=== PATIENT | male | born 1995 | race African-American/Black ===

== ENCOUNTER 2022-09-11 04:21 | Emergency (ER) | payer MEDICAID ==
[~2022-09-11] VITALS: Ht 177.8 cm; Wt 86.0 kg
[2022-09-11 04:30] VITALS: BP 130/86
== END 2022-09-11 05:31 | disposition home or self-care (01) ==
LOC: ER 04:21
DX: K94.09 Other complications of colostomy (principal)
CPT/HCPCS: 99281